=== PATIENT | female | born 1950 | race Caucasian/White ===

== ENCOUNTER → 2017-09-14 | Outpatient (CLI) | payer OTHER | LOC: CIMAGING 07:52 | PROVIDERS: ATTEND Nurse Practitioner | DX: Z12.31 Encounter for screening mammogram for malignant neoplasm of breast (principal) | CPT/HCPCS: G0202 ==

== ENCOUNTER → 2018-06-05 | Outpatient (CLI) | payer OTHER | LOC: CIMAGING 12:17 | PROVIDERS: ATTEND Nurse Practitioner | DX: M79.672 Pain in left foot (principal) | CPT/HCPCS: 73630-PO ==

== ENCOUNTER → 2018-10-07 | Outpatient (CLI) | payer OTHER | LOC: CIMAGING 09:26 | PROVIDERS: ATTEND Nurse Practitioner | DX: Z12.31 Encounter for screening mammogram for malignant neoplasm of breast (principal) ==